=== PATIENT | female | born 1945 | race Caucasian/White ===

== ENCOUNTER → 2016-09-15 16:52 | Outpatient (CLI) | payer MEDICARE | END | disposition home or self-care (01) | LOC: D.LABREF 16:52 | DX: R31.9 Hematuria, unspecified (principal) ==

== ENCOUNTER → 2016-09-20 10:51 | Outpatient (CLI) | payer MEDICARE | END | disposition home or self-care (01) | LOC: D.CT 10:51 | DX: R31.9 Hematuria, unspecified (principal) ==

== ENCOUNTER 2018-02-04 08:00 | Outpatient (CLI) | payer MEDICARE | END 2018-02-04 09:00 | disposition home or self-care (01) | LOC: D.MAMMO 08:00 | DX: Z12.31 Encounter for screening mammogram for malignant neoplasm of breast (principal) ==

== ENCOUNTER → 2019-12-29 12:17 | Outpatient (CLI) | payer MEDICARE | END | disposition home or self-care (01) | LOC: D.US 12:17 | PROVIDERS: ATTEND Family Medicine | DX: E04.1 Nontoxic single thyroid nodule (principal) ==

== ENCOUNTER 2020-02-04 18:00 | Outpatient (CLI) | payer MEDICARE | END 2020-02-04 23:59 | disposition home or self-care (01) | LOC: D.MAMMO 18:00 | PROVIDERS: ATTEND Family Medicine | DX: Z12.31 Encounter for screening mammogram for malignant neoplasm of breast (principal) ==